=== PATIENT | female | born 1990 | race Caucasian/White ===

== ENCOUNTER 2021-12-13 18:36 | Emergency (ER) | payer MEDICAID, SELFPAY ==
[2021-12-13 18:42] VITALS: BP 127/82; PULSE 88; RESP 18; TEMP 36.9; O2SAT 98; BMI 30.9
--- NOTE | 2021-12-13 19:13 | CTR_ITS ---
PROCEDURE INFORMATION: Exam: CT Cervical Spine Without Contrast Exam date and time: 12/13/2021 7:13 PM Age: 31 years old Clinical indication: Injury or trauma; Other: Falling metal; Blunt trauma; Patient HX: PT was hit by a falling piece of metal R ear and neck denies loc; Additional info: Neck injury, pain, wooden panel fell and hit TECHNIQUE: Imaging protocol: Computed tomography images of the cervical spine without contrast. Axial, coronal and sagittal reformatted images were created and reviewed. Radiation optimization: All CT scans at this facility use at least one of these dose optimization techniques: automated exposure control; mA and/or kV adjustment per patient size (includes targeted exams where dose is matched to clinical indication); or iterative reconstruction. COMPARISON: CT head wo con* [id number] 12/13/2021 7:48 PM RADIATION DOSE METRICS: Total DLP (mGy-cm): 679.77 FINDINGS: Bones/joints: Slight reversal of the normal cervical lordosis. No CT evidence of acute fracture, dislocation or subluxation. Alignment anatomic. Vertebral body heights maintained. Discs/Spinal canal/Neural foramina: Intervertebral disc spaces preserved. No significant spinal canal or neural foraminal stenosis. Lungs: Grossly unremarkable. Soft tissues: Grossly unremarkable. CT/CT cervical spin wo con* [id number] IM[address]ION: 1[address] No CT evidence of acute cervical spine traumatic injury. 2. Additional findings, as above.
--- NOTE | 2021-12-13 19:13 | CTR_ITS ---
PROCEDURE INFORMATION: Exam: CT Head Without Contrast Exam date and time: 12/13/2021 7:13 PM Age: 31 years old Clinical indication: Injury or trauma; Other: Falling metal; Blunt trauma (contusions or hematomas); Without loss of consciousness; Patient HX: PT was hit by a falling piece of metal R ear and neck denies loc; Additional info: Head injury TECHNIQUE: Imaging protocol: Computed tomography of the head without contrast. Axial, coronal and sagittal reformatted images were created and reviewed. Radiation optimization: All CT scans at this facility use at least one of these dose optimization techniques: automated exposure control; mA and/or kV adjustment per patient size (includes targeted exams where dose is matched to clinical indication); or iterative reconstruction. COMPARISON: No relevant prior studies available. RADIATION DOSE METRICS: Total DLP (mGy-cm): 800.44 FINDINGS: Brain: No CT evidence of acute intracranial hemorrhage or acute territorial infarction. No significant mass effect or midline shift. Basal cisterns patent. Cerebral ventricles: Normal in size and configuration. Paranasal sinuses: Minimal ethmoid mucosal thickening. Mild polypoid right frontal sinus mucosal thickening. Mastoid air cells: Grossly unremarkable. Bones/joints: No acute osseous abnormality. Soft tissues: Mild right parietal scalp swelling. CT/CT head wo con* [id number] IMPRESSION: 1. No CT evidence of acute intracranial pathology. 2. Additional findings, as above.
[2021-12-13] MEDS: ondansetron 4 MG Tablet PO (19:21)
[2021-12-13 19:23] VITALS: RESP 16; O2SAT 97
[2021-12-13] MEDS: HYDROmorphone 1 mg/mL INJ 1 mL IM (19:23)
--- NOTE | 2021-12-13 19:26 | ED_ITS ---
HPI - Head Injury General: Chief complaint: Head Injury Stated complaint: Head pain Time Seen by Provider: 12/13/21 18:49 Source: patient History of Present Illness: 31-year-old female states an hour prior to arrival or so, a panel fell on her head and neck on the right side. She complains of headache and neck pain, neck pain worsens with movement of her shoulder or arm on the right. No radicular pain down into the arm. No numbness or tingling. No vomiting. No loss of consciousness. No vision changes. MD Complaint: head injury Onset (ago): hour(s) (1) Place: home Loss of Consciousness: no Location of injury: parietal Severity: moderate Quality: throbbing Radiation: neck Other Injuries: neck Associated symptoms: Reports neck pain and other ( I am tired ); Deny confusion, nausea, numbness, syncope, tingling, visual changes, vomiting or weakness Review of Systems Const: Denies: fever(s) Eyes: Denies: change in vision or blurry vision ENMT: Denies: throat pain Card: Denies: chest pain or syncope Resp: Denies: dyspnea GI: Denies: nausea or vomiting Musc: Reports: neck pain Neuro: Reports: headache(s); Denies: numbness in extremities, weakness in extremities, dizziness or confusion Physical Exam Const: COMMON NORMALS: no acute distress GENERAL APPEARANCE: cooperative HENMT: COMMON NORMALS: external ears normal, TM's normal bilaterally and Normal external nose present HEAD & SCALP: contusion (Right parietal scalp, right mid neck posteriorly) FACE & SINUS: normal facial exam and face symmetric NOSE: Normal external nose present and Normal nares present EXTERNAL EAR: Yes external ears normal TYMPANIC MEMBRANE: TM's normal bilaterally MOUTH: Normal oral and palatal mucosa present THROAT: posterior oropharynx normal Eye: COMMON NORMALS: Equal, round and reactive pupils present, EOMs intact bilaterally and conjunctivae normal CONJUNCTIVA: Yes conjunctivae normal PUPIL: Yes Equal, round and reactive pupils present Neck/C-Spine: GENERAL: Yes tender (To right of midline, mid neck is worse) Chest: COMMONS NORMALS: normal inspection of the chest Resp: COMMON NORMALS: normal respiratory effort, No use of accessory muscles and clear to auscultation bilaterally AUSCULTATION: clear to auscultation bilaterally Cardio: COMMON NORMALS: regular rate and regular rhythm RATE: regular rate RHYTHM: regular rhythm Course Vital Signs: Vital signs: Vital Signs Temperature 98.5 F 12/13/21 18:42 Pulse Rate 88 12/13/21 18:42 Respiratory Rate 16 12/13/21 20:53 Blood Pressure 127/82 12/13/21 18:42 Pulse Oximetry 97 12/13/21 19:23 MDM - Head Injury Medcial Decision Making CTs negative. will allow home. Lab Data Radiology Impressions Cervical Spine CT 12/13/21 19:[address]: 1[address] evidence of acute cervical spine traumatic injury. 2. Additional findings, as above. Head CT 12/13/21 19:13 IMPRESSION: 1. No CT evidence of acute intracranial pathology. 2. Additional findings, as above. Discharge Plan Discharge Patient Disposition: Home Clinical Impression: Contusion of scalp, Neck strain Concussion Qualifiers: Encounter type: initial encounter Loss of consciousness presence/duration: without LOC Qualified Code(s): S06.0X0A - Concussion without loss of consciousness, initial encounter Condition: Stable Prescriptions: New ketorolac 10 mg tablet 10 mg PO TID PRN (Reason: pain) Qty: 10 0RF cyclobenzaprine 10 mg tablet 10 mg PO TID PRN (Reason: muscle spasm) Qty: 10 0RF Discharge Orders: Discharge ED (Routine); Ordered 12/13/21 Ordered By: Aron Howard Referrals: Yessenia Beavers MD [Primary Care Provider] - Discharge Diet: Advance as tolerated Discharge Activity: Limit activity as instructed Patient Instructions: Cervical Strain (ED), Concussion (ED), Scalp Contusion in Adults (ED) Activity Restrictions/Additional Instructions: Medications as directed, return for vomiting, worsening mental status, worsening headache despite treatment, other concerning symptoms. Coding Level of Care Code ED Nursing Information Systems Coordinator for Chg Fwd Exam Detailed
[2021-12-13 20:53] VITALS: RESP 16
[2021-12-13] MEDS: oxyCODONE-APAP 5-325 mg Tablet 2 TAB PO (20:53)
== END 2021-12-13 20:59 | disposition home or self-care (01) ==
PROVIDERS: Emergency Provider Emergency Medicine; Family Provider Internal Medicine Endocrinology, Diabetes & Metabolism; PCP Internal Medicine Endocrinology, Diabetes & Metabolism
DX: S06.0X0A Concussion without loss of consciousness, initial encounter (principal); S00.03XA Contusion of scalp, initial encounter; S16.1XXA Strain of muscle, fascia and tendon at neck level, initial encounter; W20.8XXA Other cause of strike by thrown, projected or falling object, initial encounter
CPT/HCPCS: 70450; 72125; 96372; 99283; J1170; Q0162